=== PATIENT | female | born 1975 | race Caucasian/White ===

== ENCOUNTER 2017-08-05 12:32 | Emergency (ER) | payer MEDICAID ==
[2017-08-05 12:44] VITALS: BP 140/82; BMI 26.0
--- NOTE | 2017-08-05 14:03 | RAD ---
HAND RADIOGRAPHS CLINICAL HISTORY: 42-year-old female status post fall from wheelchair with right hand pain. COMPARISON: None. FINDINGS: Three views of the right hand demonstrate subtle cortical irregularity within the scaphoid waist suggestive of nondisplaced fracture. Remaining imaged osseous structures are intact and joint s paces remain congruent. There is mild edema about the wrist. IMPRESSION: Findings concerning for nondisplaced scaphoid waist fracture, further evaluation with scaphoid views and/or CT wrist recommended for complete evaluation. Reported By:
--- NOTE | 2017-08-05 14:05 | RAD ---
Right forearm, two views Indication: Fall with arm pain Comparison: None Findings: No acute fracture or malalignment of the right forearm is identified. The elbow and wrist j oint spaces are preserved and grossly intact. There is no gross soft tissue injury. Impression: No acute radiographic abnormality of the right forearm. Reported By:
--- NOTE | 2017-08-05 14:47 | CT ---
HISTORY: Pain after fall Study: CT of the right upper extremity without contrast Comparison: Same day radiographs Technique: Multiple axial images were obtained without administration of IV contrast. Sagittal and c oronal reformats were performed and reviewed. Dose reduction techniques including Automated Exposure Control (AEC) and adjustment of mA and kV were utilized. Findings: Normal radiocarpal alignment. No evidence of acute fracture or dislocation. The carpal bones appear i ntact. The soft tissues are unremarkable. No fluid collections are seen. The visualized portions of t he forearm and hand are intact. No radiopaque foreign body. IMPRESSION: 1. No acute osseous abnormality. Reported By:
--- NOTE | 2017-08-05 15:46 | DR.GENAD ---
HPI - PCP Primary Care Physician: JAIME - HPI Comment HPI Comment: FELL AT HOME AND INJURED RR HAND AND ELBOW. INCREASING PAIN. POSSIBLE FRACTURE PER PLAN EXRAY. - Complaint/Symptoms Chief Complaint Doctors Comments: FEEL AND INJURED LEFT HAND. HERE TO REPEAT XRAY, CT RIGHT UPPER EXTREMITIES. 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 Past Surgical History: Yes Surgical History: Cholecystectomy Past Surgical History Comment: RIGHT LEG, STENTS - Family History History of Family Medical Conditions: Yes Family Medical History: Diabetes Mellitus, Cancer, [place], Heart Failure, Hypertension - Social History Does patient currently use any type of tobacco product: Yes Have you used tobacco products in the last 12 months: Yes Type of Tobacco Use: Cigarettes How many years tobacco product used: 20 Does any household member use tobacco: No Alcohol Use: None Do you use any recreational Drugs:: No Lives With: Family Lives Where: Home - infectious screening In the last 2 months have you had wt loss of >10#?: NO Have you had fever, night sweats or hemotysis?: No Have you traveled outside the country in the last 6 months?: No Isolation: Standard ROS - Review of Systems Constitutional: No Symptoms Reported Eyes: No Symptoms Reported ENTM: No Symptoms Reported Respiratoy: No Symptoms Reported Cardiovascular: No Symptoms Reported Gastrointestinal/Abdominal: No Symptoms Reported Genitourinary: No Symptoms Reported Neurological: No Symptoms Reported Musculoskeletal: Left, Elbow, Hand Integumentary: Change in Hair/Nails Hematologic/Lymphatic: Easy Bleeding, Easy Bruising Endocrine: No Symptoms Reported All Other Systems: Reviewed and Negative PE - Vital Signs Vitals: Temperature 98 F Pulse Rate 101 Respiratory Rate 18 Blood Pressure 140/82 O2 Sat by Pulse Oximetry 99 - General Limitations: No Limitations General Appearance: Alert - Head Head Exam: Normal Inspection - Eyes Eye exam: Normal Appearance - ENT ENT Exam: Normal External Ear Exam External Ear Exam: Normal External Inspection TM/Canal Exam: Bilateral Normal Mouth Exam: Normal Inspection Throat Exam: Normal Inspection - Neck Neck Exam: Trachea Midline - Chest Chest Inspection: Symmetric Chest Wall Rise - Respiratory Respiratory Exam: Normal Lung Sounds Bilat Respiratory Exam: Bilateral Clear to Auscultation - Cardiovascular Cardiovascular Exam: Regular Rate, Normal Rhythm, Normal Heart Sounds - Abdominal Exam Abdominal Exam: Normal Bowel Sounds, Soft. negative: Tenderness - Extremities Extremities Exam: Tenderness (HAND TENDERNESS OVER BASSE OF THUMB.), Other (RT AKA, ) - Back Back Exam: Normal Inspection - Neurologic Neurological Exam: Alert, Oriented X3 - Skin Skin Exam: Erythema MDM - Additional Information Additional Information Obtained From: Family - Differential Diagnosis Differential Diagnosis: RT HAND FRACTURE, RT HAND SPRAIN, RT ELBOW CONTUSION Course - Treatment Treatment: SEE ORDERS - Education/Counseling Education/Counseling: Patient, Family Educated On: Diagnosis ROR - XRAY XRAY Interpreted by: Radiologist XRAY Findings: REPORT DISCUSS WITH PATIENT. - Diagnosis Discharge Problem: Contracture, right hand Sprain of right hand Qualifiers: Encounter type: initial encounter Qualified Code(s): S63.91XA - Sprain of unspecified part of right wrist and hand, initial encounter Contusion of right elbow Qualifiers: Encounter type: initial encounter Qualified Code(s): S50.01XA - Contusion of right elbow, initial encounter - Discharge Plan Disposition: 01 HOME, SELF-CARE Condition: Stable - Follow ups/Referrals Follow ups/Referrals: NFD,None [Primary Care Provider] - 2 days - Instructions Instructions: Intermetacarpal Sprain, Musculoskeletal Pain Additional Instructions: RETURN TO ED IF WORSE.
== END 2017-08-05 16:21 | disposition home or self-care (01) ==
LOC: ER 13:02
DX: S63.91XA Sprain of unspecified part of right wrist and hand, initial encounter (principal); S50.01XA Contusion of right elbow, initial encounter; M24.541 Contracture, right hand; W19.XXXA Unspecified fall, initial encounter; Y92.009 Unspecified place in unspecified non-institutional (private) residence as the place of occurrence of the external cause
CPT/HCPCS: 73090; 73130; 73200; 99283

== ENCOUNTER 2018-03-28 12:14 | Emergency (ER) | payer MEDICAID ==
[2018-03-28 12:24] VITALS: BP 137/69; BMI 25.6
[2018-03-28] MEDS ORDERED: TETRACAINE HCL AFFEYE ONE (13:13)
[2018-03-28] MEDS ORDERED: FUL-GLO STRIP LEFTEYE ONE (13:13)
[2018-03-28] MEDS ORDERED: FUL-GLO STRIP ONE (13:16)
--- NOTE | 2018-03-28 13:23 | DR.EXTPAIN ---
HPI - Time seen Time seen: 13:17 - PCP Primary Care Physician: dr garcia - Complaint/Symptoms Chief Complaint Doctor Comments: Patient is complaining of her left eye being red with pain and swelling for the past eight hours. She denies any recent trauma. States her left eye hurts when she moves it from side to side. States she went to the eye doctor recently and he told her the pressure in her eyes was a little high and he was going to put her on medicines if it was elevated on return. States she smokes one pack cigarettes daily. States she wears glasses but no contact lense. Chief Complaint:: patient stated her left eye ball has been red and swollen for 8 hours. - Nurses notes reviewed Nurses Notes Review: Yes - Source History Provided: Patient - Mode of arrival Mode of Arrival: Ambulatory - Timing Onset of Chief Complaint: 03/28/18 - Context History of: None - Associated signs and symptoms Associated Signs and Symptoms: Swelling PMH - PMH Past Medical History: Yes Past Medical History: Asthma, COPD, Diabetes, Dyslipidemia, [place] Past Surgical History: Yes Surgical History: Cholecystectomy, Ortho Surgery Past Surgical History Comment: stents in legs,8 amputations, - Family History History of Family Medical Conditions: Yes Family Medical History: Diabetes Mellitus, Cancer, [place], Heart Failure, Hypertension - Social History Does patient currently use any type of tobacco product: Yes Have you used tobacco products in the last 12 months: Yes Type of Tobacco Use: Cigarettes How many years tobacco product used: 35 Does any household member use tobacco: No Alcohol Use: None Do you use any recreational Drugs:: No Lives With: Family Lives Where: Home - infectious screening In the last 2 months have you had wt loss of >10#?: NO Have you had fever, night sweats or hemotysis?: No Have you traveled outside the country in the last 6 months?: No Isolation: Standard ROS - Review of Systems Constitutional: No Symptoms Reported Eyes: No Symptoms Reported, Eye Pain, Blurred Vision, Tearing ENTM: No Symptoms Reported, Nose Discharge, Nose Congestion Respiratoy: No Symptoms Reported Cardiovascular: No Symptoms Reported. negative: See HPI, Chest Pain, Edema, Palpitations, Syncope, Cyanosis, Skin Mottling, Other Gastrointestinal/Abdominal: No Symptoms Reported Genitourinary: No Symptoms Reported. negative: See HPI, Discharge, Dysuria, Frequency, Hematuria, Pain, Bleeding, Other Neurological: No Symptoms Reported Musculoskeletal: No Symptoms Reported Integumentary: No Symptoms Reported Hematologic/Lymphatic: No Symptoms Reported Endocrine: No Symptoms Reported Psychiatric: No Symptoms Reported PE - Vital Signs Vitals: Pulse Rate 86 Respiratory Rate 16 Blood Pressure 137/69 O2 Sat by Pulse Oximetry 97 - General Limitations: No Limitations General Appearance: Alert, In Distress (moderate) - Head Head Exam: Normal Inspection, Atraumatic, Normocephalic - Eyes Eye exam: Normal Appearance, PERRL, EOMI, Conjunctival Injection. negative: Scleral Icterus, Nystagmus, Miosis, Mydrasis, Periorbital Swelling, Periorbital Tenderness, Other - ENT ENT Exam: Normal Exam, Normal Oropharynx, Normal External Ear Exam, Mucous Membranes Moist, TM's Normal Bilaterally - Neck Neck Exam: Normal Inspection, Full ROM, Trachea Midline - Chest Chest Inspection: Normal Inspection, Symmetric Chest Wall Rise - Respiratory Respiratory Exam: Normal Lung Sounds Bilat Respiratory Exam: Bilateral Clear to Auscultation - Cardiovascular Cardiovascular Exam: Regular Rate, Normal Rhythm, Normal Heart Sounds - Abdominal Exam Abdominal Exam: Normal Inspection, Normal Bowel Sounds, Soft Abdominal Tenderness: negative: RUQ, RLQ, LUQ, LLQ, Epigastrium, Suprapubic, Diffuse, Mild, Moderate, Severe, Other - Extremities Extremities Exam: Normal Inspection, Full ROM, Normal Capillary Refill - Upper Extremities Shoulder Exam: Normal Inspection, Full ROM Arm Exam: Normal Inspection, Full ROM. negative: Tenderness, Swelling, Abrasion , Laceration, Ecchymosis, Deformity, Crepitus, Erythema, Other Elbow Exam: Normal Inspection, Full ROM Forearm Exam: Normal Inspection, Full ROM Hand Exam: Normal Inspection, Full ROM Neuromotor Exam: Normal Exam. negative: Wrist Extension, Thumb Opposition, Thumb IP Flexion, Thumb Adduction, Fingers 2-5 Abduction, Other Neurosensory Exam: Normal Exam Hand Tendon Exam: negative: Flexor Digitorium Profundus (Location), Flexor Digitorium Superficialis (Location), Extensor Tendon (Location), Other Upper Ext. Vascular Exam: Capillary Refill - Lower Extremities Hip/Pelvis Exam: Normal Inspection, Full ROM Upper Leg Exam: Normal Inspection, Full ROM Knee Exam: Normal Inspection, Full ROM Lower Leg Exam: Normal Inspection, Full ROM Ankle Exam: Normal Inspection, Full ROM Foot/Toe Exam: Normal Inspection, Full ROM Neurovascular/Tendon Exam: Normal Capillary Refill Gait Exam: Not Tested/Not Observed (patient bilateral amputee) - Back Back Exam: Normal Inspection, Full ROM - Neurological Neurological Exam: Alert, Oriented X3, CN II-XII Intact, Reflexes Normal. negative: Normal Gait (gait not tested) - Psychiatric Psychiatric Exam: Normal Affect, Normal Mood - Skin Skin Exam: Warm, Dry, Intact, Normal Color Type of Lesion: negative: Rash, Abscess, Laceration, Foreign Body, Bite/Sting, Abrasion, Other Distribution: negative: Generalized, Involves Palms/Soles, Head, Face, Neck, Thorax, Chest, Back, Abdomen, Genitals, LUE, LLE, RUE, RLE, Other Description: negative: Size, Tenderness, Erythematous, Swelling, Macular, Papular, Vesicular, Blisters, Cofluent, Bullous, Petechial, Purpuric, Urticarial , Crusting, Discharge, Fluctuant, Indurated, Other Procedures - Eye Procedure Alcaine Drops Administered: Yes Eye Irrigated w/ Saline (ccs): 20 Cyclogel 2 Drops Administered: left eye (left eye without abrasion or fluorescien stain uptake.) - Diagnosis Discharge Problem: Acute right eye pain - Discharge Plan Disposition: HOME, SELF-CARE Condition: Stable - Follow ups/Referrals Follow ups/Referrals: NFD,None [Primary Care Provider] - 3 days LOGAN BHATIA [REFERRING] - 3 days - Instructions Instructions: Blurred Vision, Adult, Pain Without a Known Cause
== END 2018-03-28 13:52 | disposition home or self-care (01) ==
LOC: ER 12:28
PROC: 3E1 Administration, Physiological Systems and Anatomical Regions, Irrigation (ICD-10-PCS; principal; 2018-03-28)
DX: H57.11 Ocular pain, right eye (principal)
CPT/HCPCS: 99281; 99282